=== PATIENT | female | born 1945 | race Caucasian/White ===

== ENCOUNTER 2017-10-15 16:07 | Emergency (ER) | payer MEDICARE, MEDICAID ==
[~2017-10-15] VITALS: Wt 181.4 kg
[~2017-10-15 16:07] MED LIST: ALBUTEROL 3 ML 33 ML INH; ANTIVERT/2525 MG PO; ASPIRIN ADULT L81 M2 PO; ASPIRIN EC325 MG PO; ASPIRIN325 M2 PO; AUGMENTIN 500 M1 TAB PO; B12,B-12,B 12500 MC1 PO; C Q 10; CENTRUM SILVER1 EACH PO; CENTRUM SILVER1 TA1 PO; CENTRUM SILVER1 TA2 PO; CENTRUM1 TAB PO; CO Q 10; COENZYME Q PO; COUMADIN; COUMADIN2 M1 PO; COUMADIN5 M2 PO; COUMADIN5 MG PO; COUMADIN6 M2 PO; COUMADIN7.5 M1 PO; CQ10 PO; DAYPRO600 M1 PO; DIOVAN80 M1 PO; DIOVAN80 MG PO; DIPHENHYDRAMINE25 M2 PO; DULCOLAX10 M1 RC; DULCOLAX10 MG R; DULCOLAX5 MG PO; FISH OIL; GLUCOPHAGE500 MG PO; GLYBURIDE AND M1 TA1 PO; GLYBURIDE AND M1 TA2 PO; GLYBURIDE MICRO1 TA1 PO; HUMALOG100 U/ML SC; INDERAL LA160 M1 PO; INDERAL LA80 MG PO; KEFLEX500 MG PO; LANTUS100 U/ML SC; LASIX40 MG PO; LIPITOR40 MG PO; METICORTEN1 MG PO; MYCOLOG CREAM 115 GM T; OXYGEN NAS; POTASSIUM CHLO20 ME3 PO; POTASSIUM20 MEQ PO; PREDNISONE1 MG PO; PREDNISONE5 MG PO; PROTONIX IV40 MG IV; PROVENTIL0.09 MG/A1 INH; PROZAC20 MG PO; RESTORIL30 MG PO; ROCEPHIN1 GM IV; SOLU-MEDROL125 MG PO; SPIRIVA -- 3018 MCG INH; SPIRIVA -- 3018 MCG PO; SYMBICORT1 AE1 INH; SYMBICORT1 AER INH; SYNTHROID,LEV150 MCG PO; SYNTHROID,LEV175 MCG PO; SYNTHROID0.125 MG PO; Synthroid,Lev200 MCG PO; TYLENOL325 M1 PO; TYLENOL325 M2 PO; VALSARTAN40 MG PO; VICODIN 5/500 505 MG PO; VICODIN 500 MG-1 TAB PO; VIT E; VITAMIN E400 UNI1 PO; VITAMIN E800 I1 PO; WARFARIN SODIU7.5 MG PO; ZITHROMAX250 MG PO; ZITHROMAX500 M1 IV; ZOFRAN2 MG/ML IV; [UNRECOGNIZED DRUG - OTHER] PO
[2017-10-15 16:15] VITALS: BP 156/54
[2017-10-15] MEDS ORDERED: MEDROL DOSEPAK4 MG PO ×2 (16:29→16:30)
[2017-10-15] MEDS ORDERED: HYDROXYZINE HCL25 MG PO ×2 (16:29→16:30)
== END 2017-10-15 16:27 | disposition home or self-care (01) ==
LOC: ED 16:07
DX: L50.8 Other urticaria (principal); T36.1X5A Adverse effect of cephalosporins and other beta-lactam antibiotics, initial encounter; Z90.89 Acquired absence of other organs; Z79.899 Other long term (current) drug therapy; Z79.01 Long term (current) use of anticoagulants; Z79.4 Long term (current) use of insulin; Z79.82 Long term (current) use of aspirin; Y92.9 Unspecified place or not applicable

== ENCOUNTER 2018-07-17 10:12 | Inpatient (IN) | payer MEDICARE, MEDICAID ==
[~2018-07-17] VITALS: Ht 175.2 cm; Wt 199.2 kg
--- NOTE | ~2018-07-17 | PR ---
[place], [place] PROGRESS NOTE NAME: LALO MCCULLOUGH [facility] #: [id number] UNIT #: [id number] ROOM: 530 DOCTOR: JOSHUA ULLOA BIRTHDATE: [birth year] DOS: 07/19/2018 PULMONARY PROGRESS NOTE SUBJECTIVE: The patient was noted sitting comfortably on her bed at this time without any signs of acute distress. The patient states she is feeling a lot better today and notes decreased shortness of breath and wheezing. The patient denies symptoms of fevers, chills, hemoptysis or chest pain at this time. OBJECTIVE: VITAL SIGNS: Normal temperature, respiratory rate 20, heart rate 71, blood pressure 146/64, pulse oxygen saturation on 2 liters nasal cannula 94%. HEENT: Head atraumatic. Eyes nonicterus. NECK: Supple. CARDIOVASCULAR: S1, S2 audible. LUNGS: Wheezing noted throughout lungs with decreased breathing sounds bilaterally. No crackles appreciated at this time. EXTREMITIES: Edema noted with superimposed chronic severe obesity. LABORATORY DATA: CBC on 07/19/2018, white blood cell count 12.4, hemoglobin 13, platelet count 306. CMP on 07/19/2018, BUN 39, creatinine 1.33, carbon dioxide 26, glucose 293. INR at this time is now therapeutic at 2.3. Chest x-ray repeated done on 07/18/2018, impression, normal PA and lateral chest. IMPRESSION: 1. Resolving acute hypoxic respiratory failure with acute exacerbation of bronchial asthma. 2. Possible congestive heart failure with diastolic dysfunction cannot be excluded. 3. Elevation of creatinine resulting from diuretic use. 4. Morbid obesity. 5. Obstructive sleep apnea disorder. PLAN OF MANAGEMENT: We will continue to diurese the patient with furosemide 40 mg b.i.d. We will also continue to monitor the patient's BUN and creatinine, which has increased with the patient's use of diuretic. INR is therapeutic at this time. We will continue the patient's antibiotic, bronchodilators and other supportive care. Continue oxygen supplementation to maintain a pulse oxygen saturation of 92% or greater. Further changes in management will be made based upon the change in the status of the patient during her stay and the progression of her illness. JOSHUA ULLOA DO [place], [place] PROGRESS NOTE NAME: LALO MCCULLOUGH UNIT #: [id number] ROOM: 530 DOCTOR: JOSHUA ULLOA BIRTHDATE: [birth year] CARLITO ALMONTE MD CM:PNMARGARET [id number] JOSHUA ULLOA 07/19/18 1757 interface
--- NOTE | ~2018-07-17 | EKG ---
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
--- NOTE | ~2018-07-17 | PR ---
[place], [place] PROGRESS NOTE NAME: LALO MCCULLOUGH [facility] #: [id number] UNIT #: [id number] ROOM: 530 DOCTOR: SUZY RIGGINS MD,CARLITO BIRTHDATE: [birth year] DOS: 07/20/2018 SUBJECTIVE: The patient was noted comfortable at this time, resting in the bed, noted continued improvement in respiratory symptoms, reduction of cough, wheezing, and shortness of breath. She used the CPAP last night. OBJECTIVE: VITAL SIGNS: Normal temperature, respiratory rate 18, heart rate 62, blood pressure 163/75. The pulse oxygen saturation recorded on 2 liters nasal cannula is 93% saturation. HEENT: Head was atraumatic. Eyes nonicterus. NECK: Supple. CARDIOVASCULAR: S1, S2 is audible. LUNGS: The patient was noted without any ____ or crackles. This morning improvement in wheezing noted. ABDOMEN: Soft, obese, nontender. EXTREMITIES: No edema. LABORATORY DATA: INR was noted 3.1 today. IMPRESSION: 1. The patient with progressive and gradual resolution of acute exacerbation of bronchial asthma, which was noted uncomplicated, severe persistent and acute bronchitis. 2. Obstructive sleep apnea disorder. PLAN OF MANAGEMENT: Discharge the patient from the pulmonary standpoint, on oral antibiotics and bronchodilators could be considered. Continue the therapy, plan of management as well as usual plan of care, and supportive care. CARLITO ALMONTE MD CM:PNTRANS [id number] CARLITO RIGGINS MD 07/21/18 0103 interface
--- NOTE | ~2018-07-17 | PR ---
[place], [place] PROGRESS NOTE NAME: LALO MCCULLOUGH UNIT #: [id number] ROOM: 530 DOCTOR: CARLITO NICOLAS MD BIRTHDATE: [birth year] DOS: 07/19/2018 PULMONARY PROGRESS NOTE SUBJECTIVE: The patient reported reduction in symptoms of shortness of breath, coughing, wheezing last 24 hours. Continue Solu-Medrol, bronchodilators and other treatments. She has been using her CPAP from home as well. OBJECTIVE: VITAL SIGNS: Normal temperature, respiratory rate 20, heart rate 71, blood pressure 146/64. The pulse oxygen saturation of the patient recorded as 94% on 2 liters nasal cannula. HEENT: Chronic severe morbid. Head was atraumatic. Eyes nonicterus. NECK: Supple. CARDIOVASCULAR: S1, S2 audible. LUNGS: Noted with [id number] expiratory wheezing, decreased from previous examination. ABDOMEN: Soft and obese, nontender. Bowel sounds present. EXTREMITIES: Without any acute edema. LABORATORY DATA: INR today noted at 2.33. The blood culture of the patient from the 07/17/2018 showed no bacterial growth. CBC this morning: WBC count 12.4. CMP: BUN of 39, creatinine 1.33, glucose 393. Chest x-ray of the patient that I ordered yesterday was completed does not show any acute pulmonary infiltration. IMPRESSION: 1. The patient with acute exacerbation of bronchial asthma with acute bronchitis, no evidence of pneumonia, resolution of small atelectasis noted in the chest x-ray, possibly on admission. 2. Morbid obesity. 3. Obstructive sleep apnea disorder. 4. Type 2 diabetes mellitus, uncontrolled hyperglycemia with use of steroids. PLAN OF TREATMENT: No change in pulmonary standpoint. Continue current dose of corticosteroids for the next 24 hours. Potential discharge home tomorrow morning from the patient pulmonary standpoint depends on further improvement of the respiratory status. [place], [place] PROGRESS NOTE NAME: LALO MCCULLOUGH UNIT #: [id number] ROOM: 530 DOCTOR: CARLITO NICOLAS MD BIRTHDATE: [birth year] CARLITO ALMONTE MD CM:PNTRANS [id number] CARLITO RIGGINS MD 07/20/18 0017 interface
--- NOTE | ~2018-07-17 | CON ---
[place], [place] REPORT OF CONSULTATION NAME: LALO MCCULLOUGH [facility] #: [id number] UNIT #: [id number] ROOM: 530 DOCTOR: CARLITO NICOLAS MD BIRTHDATE: [birth year] DOS: 07/18/2018 CONSULTATION REQUESTED BY: Hospitalist service. REASON FOR CONSULTATION: For the assessment of symptoms of current shortness of breath and exacerbation of COPD. HISTORY OF PRESENT ILLNESS: A 73-year-old white female patient known with history of uncomplicated severe persistent bronchial asthma as well as obstructive sleep apnea disorder, presented to the hospital as the patient reported symptoms of having increased shortness of breath for the past, several days the symptoms have been noted significantly worsened in the last 3-4 days. Shortness of breath was occurring now at rest. She was also reported having excessive wheezing, tightness in the chest, cough has been noted initially with nonproductive sputum. Currently, expectorating dark green to brown sputum. The quantity of the sputum expectoration noted small amount. She has been admitted to the hospital and manage the patient for exacerbation of bronchial asthma. The patient denies symptoms of chest pain with that. Denies symptoms of hemoptysis. The patient stated symptoms have been noted partially decreased since hospitalization. REVIEW OF SYSTEMS: CONSTITUTIONAL: Fatigue and tiredness reported. Denies symptoms of fever or chills. EYES: Denies any burning, redness, or tenderness. EARS, NOSE, THROAT SYMPTOMS: Denies sore throat, hoarseness, otalgia, postnasal drainage or epistaxis. CARDIOVASCULAR SYSTEM: No angina pain, edema, pain in the lower extremities. GASTROINTESTINAL SYMPTOMS: Dysphagia, nausea, vomiting, diarrhea, abdominal pain, hematemesis, melena, or hematochezia. Denies abnormal weight loss noted with advanced morbid obesity. GENITOURINARY SYMPTOMS: No dysuria, suprapubic pain, hematuria or flank pain. MUSCULOSKELETAL SYMPTOMS: No acute joint pain, redness or tenderness, any lesions. SKIN: Denies abnormal lesions or rashes. CENTRAL NERVOUS SYSTEM: No dizziness, headache, diplopia, syncopal episode, tingling sensations extremities. Remaining systems were reviewed. They were noted all negative. PAST MEDICAL HISTORY: 1. Noted as severe morbid obese. 2. Uncomplicated severe persistent bronchial asthma. 3. Obstructive sleep apnea disorder. 4. The patient with deep venous thrombosis. The patient with anticoagulation. 5. Hyperlipidemia. 6. Hypothyroidism. 7. Multiple sclerosis. 8. Anxiety disorder. [place], [place] REPORT OF CONSULTATION [facility] [id number] UNIT #: [id number] ROOM: [facility] DOCTOR: CARLITO NICOLAS MD BIRTHDATE: [birth year] PAST SURGICAL HISTORY: 1. IVC placement. 2. Tonsillectomy. 3. Fiberoptic bronchoscopy that was done in 2014. FAMILY HISTORY: The patient's mother lived to be 96 years old, of an old age. Father at 77 years complication of myocardial infarction. CURRENT MEDICATIONS: Administered on this hospitalization were noted as use of Coumadin, losartan, vitamin B12, aspirin, Lantus insulin, fluoxetine, levothyroxine, Lipitor, metoprolol tartrate, IV Solu-Medrol 40 mg b.i.d., Lasix, Imdur, DuoNeb, Zithromax. She was also getting p.r.n. medication for different symptoms. DRUG ALLERGIES: CEFTIN. PHYSICAL EXAMINATION: GENERAL: A 73-year-old female patient who has been currently resting comfortably in the bed without any acute distress. Height of 5 feet 9 inches. The weight recorded 441 pounds. BMI of 65. VITAL SIGNS: For the patient which has been recorded showed the temperature noted normal since admission, respiratory rate range between 18-24, heart rate 82-74, blood pressure 209/86, on admission, currently noted 150/63. The pulse oxygen sat recorded as 91-93% saturation on 3 liters nasal cannula 89% recorded on admission. HEAD, EYES, EARS, NOSE, AND THROAT: Severe chronic morbid obese. Head was atraumatic. Eyes nonicterus. NECK: Supple. CARDIOVASCULAR SYSTEM: S1, S2 audible. LUNGS: Noted moderate reduction in breath sounds bilaterally. Scattered expiratory wheezing. No crackles. ABDOMEN: Soft, nontender. Bowel sounds present, severe morbid obesity. EXTREMITIES: Chronic severe obesity with mild superimposed edema. VISIBLE SKIN: No lesions or rashes. MUSCULOSKELETAL: Without acute deformities. Cranial nerves 12 was noted normal. There was no focal neurologic deficit. LABORATORY AND DIAGNOSTIC DATA: The CBC that was done on 07/17/2018, normal CBC. The lactic acid 2.0 yesterday. The PT, PTT was noted, INR 1.8, which is subtherapeutic yesterday. CMP that was done yesterday, BUN 16, creatinine 1.11, glucose 154. Influenza A and B, nasal washing antigens were negative. The CBC that was done this morning still noted normal CBC. The PT/INR this morning as 1.6 is noted subtherapeutic. CMP this morning, BUN 23, creatinine 1.26, glucose 264. Remaining electrolytes were normal. The chest x-ray, which was done in the Emergency Room reviewed from the PACS images difficult to assess because of large body habitus. Questionable increased pulmonary congestion venous pulmonary congestion marking. There was no visible pulmonary infiltration. IMPRESSION: 1. The patient will be currently admitted to the hospital noted acute hypoxic [place], [place] REPORT OF CONSULTATION NAME: LALO MCCULLOUGH UNIT #: [id number] ROOM: [facility] DOCTOR: SUZY RIGGINS [facility] BIRTHDATE: [birth year] respiratory failure with acute exacerbation of bronchial asthma. 2. Possibly congestive heart failure with diastolic dysfunction cannot be excluded. 3. Elevation of creatinine resulting from the diuretic. The patient had been given Lasix 40 mg b.i.d. yesterday. She has been continued on the same dose today as well. 4. Morbid obesity. 5. Obstructive sleep apnea disorder. 6. Type 2 diabetes mellitus. 7. Hypothyroidism. 8. Multiple other medical illnesses. PLAN OF MANAGEMENT: The patient will be ordered PA lateral chest x-ray to be done today to assess the congestive heart failure or other abnormality as well. Continue in the meantime other previous treatment plan of medication as in progress. Additional treatment changes will be recommended based on the progression of her illness. Monitor kidney function closely with the use of high dose diuretics and electrolytes as well. Other supportive therapy, plan of management, care plan continue as ongoing. Usual care, other supportive plan of therapy, subtherapeutic INR noted, history of chronic thromboembolism. Adjust the Coumadin to bring to therapeutic level. Aware of the drug interaction could occur with the antibiotics and other medications. ____ subtherapeutic INR was noted with history of chronic thromboembolism. At this time, the patient would not require the BiPAP ____ management component, use of CPAP from home will be continued for the long-term management of sleep apnea disorder. Continue oxygen supplementation, maintain a pulse oxygen saturation 92% or greater. Thanks for allowing me to participate in the care of this patient. CARLITO ALMONTE MD CM:CONSTR:REPORT OF CONSULTATION 1059 07/18/18 1517 interface
--- NOTE | ~2018-07-17 | PR ---
[place], [place] PROGRESS NOTE NAME: LALO MCCULLOUGH [facility] #: [id number] UNIT #: [id number] ROOM: 530 DOCTOR: JOSHUA ULLOA BIRTHDATE: [birth year] DOS: 07/19/2018 PULMONARY PROGRESS NOTE SUBJECTIVE: The patient was noted sitting comfortably at her bed at this time without any signs of acute distress. The patient states she is feeling a lot better at this time with decreased wheezing and decreased shortness of breath. The patient denies fevers and chills as well as symptoms of chest pain and hemoptysis. OBJECTIVE: VITAL SIGNS: Normal temperature, respiratory rate 20, heart rate 71, blood pressure 146/64, pulse oxygen saturation on 2 liters nasal cannula 94%. HEENT: Head was atraumatic. Eyes nonicterus. NECK: Supple. CARDIOVASCULAR: S1, S2 audible. LUNGS: Wheezing noted throughout. Decreased sounds bilaterally. No crackles appreciated at this time. ABDOMEN: Soft, nontender. EXTREMITIES: Chronic severe obesity with mild superimposed edema. LABORATORY DATA: CBC on 07/19/2018, white blood cell count 12.4, hemoglobin 13, platelet count 306. CMP on 07/19/2018, BUN 39, creatinine 1.33, carbon dioxide 26, glucose 293. Imaging studies: Repeat chest x-ray on 07/18/2018 normal PA and lateral chest. IMPRESSION: 1. Ongoing acute hypoxic respiratory failure with acute exacerbation of bronchial asthma. 2. Possibly congestive heart failure with diastolic dysfunction, cannot not be excluded at this time. 3. Elevation of creatinine resulting from the diuretic. 4. Morbid obesity. 5. Obstructive sleep apnea disorder. PLAN OF TREATMENT: We will continue to diurese the patient with furosemide 40 mg b.i.d. Monitor kidney function closely with high dose diuretics and electrolytes as well. Other supportive therapy, plan of management, care plan continue as ongoing. INR noted to be therapeutic at this time. Continue oxygen supplementation, maintain a pulse ox of 92% or greater. We will continue the patient's current antibiotics treatment and bronchodilators. Further changes in treatment will be made according to the progression of the patient's illness during her stay. JOSHUA ULLOA DO [place], [place] PROGRESS NOTE NAME: LALO MCCULLOUGH UNIT #: [id number] ROOM: [facility] DOCTOR: JOSHUA ULLOA BIRTHDATE: [birth year] CARLITO ALMONTE MD CM:RU [id number] 1452 JOSHUA ULLOA 07/19/18 1718 interface
--- NOTE | ~2018-07-17 | PR ---
[place], [place] PROGRESS NOTE [id number] UN[facility] #: [id number] ROOM: 530 DOCTOR: JOSHUA ULLOA BIRTHDATE: [birth year] DOS: 07/20/2018 PULMONARY PROGRESS NOTE SUBJECTIVE: The patient was noted sitting comfortably at her bed at this time without any signs of acute distress. The patient states she is feeling better today with decreased symptoms of shortness of breath. The patient has no complaints of fevers, chills or chest pain at this time. OBJECTIVE: VITAL SIGNS: Normal temperature, respiratory rate 20, heart rate 62, blood pressure 163/75, pulse oxygen saturation on 2 liters nasal cannula 93% saturation. HEENT: Head was atraumatic. Eyes, nonicterus. NECK: Supple. CARDIOVASCULAR: S1, S2 audible. LUNGS: Clear. ABDOMEN: Soft, nontender. EXTREMITIES: Without any acute edema. IMPRESSION: 1. The patient with acute exacerbation of bronchial asthma with acute bronchitis. 2. Morbid obesity. 3. Obstructive sleep apnea disorder. 4. Type 2 diabetes mellitus. PLAN OF TREATMENT: The patient is stable from a pulmonary standpoint. The patient may be discharged on antibiotics of primary care doctor's choosing as well as steroid taper. JOSHUA ULLOA DO [place], [place] PROGRESS NOTE NAME: [facility] [id number] UNIT #: [id number] ROOM: 530 DOCTOR: JOSHUA ULLOA BIRTHDATE: [birth year] CARLITO ALMONTE MD CM:RU [id number] 0027 JOSHUA ULLOA 07/21/18 0651 interface
--- NOTE | ~2018-07-17 | ECHO ---
[place], [place] ADULT ECHOCARDIOGRAPHY REPORT NAME LALO MCCULLOUGH UNIT #: [id number] ROOM: 530 DOCTOR: BUTCH AYALA MD, FACC BIRTHDATE: [birth year] DOS: 07/18/2018 CARDIOLOGY CONSULTATION HISTORY OF PRESENT ILLNESS: The patient is a 73-year-old female, moderately obese individual, came in with progressive increasing shortness of breath and peripheral edema with history of chronic obstructive airway disease with exacerbation. The patient also has bronchospasm. She also has sleep apnea. The patient is on steroids and bronchodilators. The patient also on diuresis quite well because of underlying congestive heart failure with IV Lasix. Since creatinine is only borderline elevated, we started Aldactone also and adjusted the current medications to improve the underlying congestive heart failure. The patient had an echocardiogram, I reviewed with the patient and explained to the patient. The patient also has progressive fatigue and tiredness, peripheral edema, and shortness of breath. She denies any chills or fever. PAST MEDICAL HISTORY: The patient has history of multiple sclerosis, hyperlipidemia, hypertension, congestive heart failure, and anxiety. PAST SURGICAL HISTORY: The patient had an IVC filter placement in the past, tonsillectomy, and bronchoscope in 2015. PHYSICAL EXAMINATION: GENERAL: The patient is markedly obese. VITAL SIGNS: Stable. LUNGS: Diminished breath sounds on auscultation of the lungs and bibasilar rales and rhonchi. EXTREMITIES: 3+ peripheral edema in lower extremities. NEUROLOGIC: No focal neurological deficit noted. RECTAL AND GENITAL: Deferred. Dr. Mahan is seeing and following the underlying pulmonary problem. Blood pressure is 143/63, heart rate is 60, afebrile. Pulse ox is normal. LABORATORY DATA: Creatinine is 1.26. Enzymes are unremarkable. DIAGNOSES: 1. Congestive heart failure. 2. Acute exacerbation of chronic obstructive airway disease. 3. Obesity. 4. Peripheral edema. PLAN: I will review echocardiogram. Continue with the current medication as adjusted. Thank you very much for asking me to see the patient. I will follow the patient. [place], [place] ADULT ECHOCARDIOGRAPHY REPORT NAME LALO MCCULLOUGH UNIT #: [id number] ROOM: 530 DOCTOR: BUTCH AYALA MD, FACC BIRTHDATE: [birth year] BUTCH AYALA MD CM:ECHO:ADULT ECHOCARDIOGRAPHY REPORT [id number] LYUBOV POPE MD [facility]
[2018-07-17 10:12] VITALS: BP 209/86
[~2018-07-17 10:12] MED LIST changes: +HYDROXYZINE HCL25 MG PO; +LANTUS SOL100 UNIT/1 SC; -LANTUS100 U/ML SC; +MEDROL DOSEPAK4 MG PO; +PROVENTIL HFA6.7 GM INH; -PROVENTIL0.09 MG/A1 INH
[2018-07-17 10:47] LABS: BASO % 0.4 % (0.0-1.0); EOS # 0.4 10*3/uL (0.0-0.4); EOS % 4.8 % (1.0-4.0); HEMATOCRIT 42.7 % (37.0-47.0); LYMPH # 1.8 10*3/uL (1.3-4.4); LYMPH % 23.4 % (27.0-41.0); MEAN CELL VOLUME 97.3 fl (81.0-99.0); MEAN CORPUSCULAR HGB 31.9 pg (27.0-31.0); MEAN CORPUSCULAR HGB CONC 32.8 g/dl (33.0-37.0); MEAN PLATELET VOLUME 9.1 fl (9.6-12.3); MONO # 0.7 10*3/uL (0.1-1.0); MONO % 8.5 % (3.0-9.0); NEUT # 4.9 10*3/uL (2.3-7.9); NEUT % 62.6 % (47.0-73.0); PLATELET COUNT AUTOMATED 259 10*3/uL (130-400); RED BLOOD COUNT 4.39 10*6/uL (4.10-5.10); RED CELL DISTRI WIDTH 12.9 % (0-14.5); WHITE BLOOD COUNT 7.9 10*3/uL (4.8-10.8)
[2018-07-17 10:58] VITALS: BP 170/90
[2018-07-17 10:59] LABS: INTERNATIONAL NORM RATIO 1.8 (2.0-3.5)
[2018-07-17 11:04] LABS: ALKALINE PHOSPHATASE 90 U/L (45-117); BUN 16 mg/dl (7-24); CHLORIDE 105 mmol/L (98-107); CREATININE 1.11 mg/dL (0.55-1.02); LIPASE 198 U/L (73-393); POTASSIUM 4.4 mmol/L (3.5-5.1); SGOT/AST 17 IU/L (3-35); SGPT/ALT 25 U/L (12-78); SODIUM 139 mmol/L (136-145)
[2018-07-17 11:07] LABS: TROPONIN I < 0.015 ng/ml (<0.045)
[2018-07-17 12:30] VITALS: BP 160/98
[2018-07-17] MEDS ORDERED: COZAAR50 M1 PO (13:10)
[2018-07-17] MEDS ORDERED: VENTOLIN 02.5 MG/3 M INH (13:12)
[2018-07-17 13:13] VITALS: BP 160/72
[2018-07-17] MEDS ORDERED: SYMB160 INH (13:13)
[2018-07-17] MEDS ORDERED: COUMADIN5 M2 PO (13:14)
[2018-07-17] MEDS ORDERED: COUMADIN10 M1 PO (13:15)
[2018-07-17] MEDS ORDERED: PREDNISONE5 MG PO (13:16)
[2018-07-17] MEDS ORDERED: VITAMIN D31000 UNI1 PO (13:17)
[2018-07-17] MEDS ORDERED: CO-Q10 PO (13:18)
[2018-07-17] MEDS ORDERED: GARLIC1 EAC1 PO (13:19)
[2018-07-17] MEDS ORDERED: TRULICITY1.5 MG/0.5 SC (13:26)
[2018-07-17] MEDS ORDERED: LEVOTHYROXINE175 MCG PO (13:28)
[2018-07-17 16:00] VITALS: BP 170/70; BP 186/69
[2018-07-17 16:27] LABS: BILIRUBIN NEGATIVE (NEGATIVE); BLOOD NEGATIVE (NEGATIVE); CLARITY CLEAR (CLEAR); COLOR YELLOW (YELLOW); GLUCOSE TRACE (NEGATIVE); KETONE NEGATIVE (NEGATIVE); LEUKO ESTERASE NEGATIVE (NEGATIVE); NITRITE NEGATIVE (NEGATIVE); PH 5.5 (5.0-9.0); UROBILINOGEN 0.2 E.U./dl (0.2-1.0)
[2018-07-17 16:33] LABS: BACTERIA 1+; RBC 0-2 rbc/hpf (0-2)
[2018-07-17] MEDS ORDERED: ADVIL PM CAPLE1 EACH PO (17:37)
[2018-07-17 20:00] VITALS: BP 150/63
[2018-07-18] VITALS: BP 157/81
[2018-07-18 06:07] LABS: BASO % 0.1 % (0.0-1.0); HEMATOCRIT 40.5 % (37.0-47.0); HEMOGLOBIN 13.3 g/dl (12.0-16.0); LYMPH # 1.3 10*3/uL (1.3-4.4); LYMPH % 17.1 % (27.0-41.0); MEAN CELL VOLUME 95.7 fl (81.0-99.0); MEAN CORPUSCULAR HGB 31.4 pg (27.0-31.0); MEAN CORPUSCULAR HGB CONC 32.8 g/dl (33.0-37.0); MEAN PLATELET VOLUME 9.2 fl (9.6-12.3); MONO # 0.1 10*3/uL (0.1-1.0); MONO % 1.4 % (3.0-9.0); NEUT % 80.9 % (47.0-73.0); PLATELET COUNT AUTOMATED 280 10*3/uL (130-400); RED BLOOD COUNT 4.23 10*6/uL (4.10-5.10); WHITE BLOOD COUNT 7.4 10*3/uL (4.8-10.8)
[2018-07-18 06:42] LABS: ALBUMIN 2.9 gm/dl (3.1-4.5); CREATININE 1.26 mg/dL (0.55-1.02); POTASSIUM 4.3 mmol/L (3.5-5.1)
[2018-07-18 06:45] LABS: INTERNATIONAL NORM RATIO 1.6 (2.0-3.5)
[2018-07-18 06:51] LABS: FREE T4 1.38 ng/dl (0.76-1.46); PHOSPHOROUS 3.2 mg/dL (2.5-4.9); THYROID STIM HORMONE (HS) 0.044 uIU/ml (0.358-4.75); TOTAL PROTEIN 7.1 gm/dL (6.4-8.2)
[2018-07-18 07:23] LABS: VITAMIN D, 25-HYDROXY 28.9 ng/mL (30-100)
[2018-07-18 10:42] VITALS: BP 122/90
[2018-07-18 12:00] VITALS: BP 143/63
[2018-07-18 16:00] VITALS: BP 142/55
[2018-07-18 20:00] VITALS: BP 155/43
[2018-07-18 20:30] VITALS: BP 156/66
[2018-07-19] VITALS: BP 157/71
[2018-07-19 06:22] LABS: BASO % 0.1 % (0.0-1.0); HEMATOCRIT 39.8 % (37.0-47.0); LYMPH # 1.2 10*3/uL (1.3-4.4); LYMPH % 9.7 % (27.0-41.0); MEAN CELL VOLUME 95.7 fl (81.0-99.0); MEAN CORPUSCULAR HGB 31.3 pg (27.0-31.0); MEAN CORPUSCULAR HGB CONC 32.7 g/dl (33.0-37.0); MEAN PLATELET VOLUME 9.6 fl (9.6-12.3); MONO # 0.3 10*3/uL (0.1-1.0); NEUT # 10.9 10*3/uL (2.3-7.9); NEUT % 87.6 % (47.0-73.0); PLATELET COUNT AUTOMATED 306 10*3/uL (130-400); RED BLOOD COUNT 4.16 10*6/uL (4.10-5.10); WHITE BLOOD COUNT 12.4 10*3/uL (4.8-10.8)
[2018-07-19 06:29] LABS: INTERNATIONAL NORM RATIO 2.3 (2.0-3.5)
[2018-07-19 06:39] LABS: CREATININE 1.33 mg/dL (0.55-1.02); POTASSIUM 4.3 mmol/L (3.5-5.1); TOTAL PROTEIN 6.8 gm/dL (6.4-8.2)
[2018-07-19 08:01] VITALS: BP 146/64
[2018-07-19 12:00] VITALS: BP 156/63
[2018-07-19 16:00] VITALS: BP 184/69
[2018-07-19 20:00] VITALS: BP 155/58
[2018-07-20] VITALS: BP 148/60
[2018-07-20 06:52] LABS: INTERNATIONAL NORM RATIO 3.1 (2.0-3.5)
[2018-07-20 06:54] LABS: ALBUMIN 2.8 gm/dl (3.1-4.5); CREATININE 1.31 mg/dL (0.55-1.02); POTASSIUM 4.4 mmol/L (3.5-5.1); TOTAL PROTEIN 6.7 gm/dL (6.4-8.2)
[2018-07-20 08:27] VITALS: BP 163/75
[2018-07-20] MEDS ORDERED: AVPAK AZITHROM250 M1 PO (11:58)
[2018-07-20] MEDS ORDERED: PREDNISONE10 MG PO (11:58)
[2018-07-20] MEDS ORDERED: COUMADIN6 M2 PO (11:59)
[2018-07-20] MEDS ORDERED: LASIX40 MG PO (12:03)
[2018-07-20] MEDS ORDERED: LOPRESSOR25 MG PO (12:03)
[2018-07-20] MEDS ORDERED: ALDACTONE25 MG PO (12:03)
[2018-07-20] MEDS ORDERED: IMDUR SA30 MG PO (12:03)
[2018-07-20 12:14] VITALS: BP 162/72
== END 2018-07-20 14:00 | disposition home health service (06) | DRG 189 ==
LOC: ED 10:12 → 5E 11:51 → EDHOLD 11:51 → 5E 11:52
PROVIDERS: Physician Assistant; Registered Nurse
DX: J96.01 Acute respiratory failure with hypoxia (principal); I13.0 Hypertensive heart and chronic kidney disease with heart failure and stage 1 through stage 4 chronic kidney disease, or unspecified chronic kidney disease; J45.51 Severe persistent asthma with (acute) exacerbation; E44.0 Moderate protein-calorie malnutrition; Z68.44 Body mass index [BMI] 60.0-69.9, adult; J44.1 Chronic obstructive pulmonary disease with (acute) exacerbation; J44.0 Chronic obstructive pulmonary disease with (acute) lower respiratory infection; J98.11 Atelectasis; T38.0X5A Adverse effect of glucocorticoids and synthetic analogues, initial encounter; J20.9 Acute bronchitis, unspecified; I50.9 Heart failure, unspecified; N18.3 Chronic kidney disease, stage 3 (moderate); G35 Multiple sclerosis; G47.33 Obstructive sleep apnea (adult) (pediatric); E11.65 Type 2 diabetes mellitus with hyperglycemia; F41.9 Anxiety disorder, unspecified; F32.9 Major depressive disorder, single episode, unspecified; D64.9 Anemia, unspecified; E78.2 Mixed hyperlipidemia; R79.1 Abnormal coagulation profile; E03.9 Hypothyroidism, unspecified; E66.01 Morbid (severe) obesity due to excess calories; T50.2X5A Adverse effect of carbonic-anhydrase inhibitors, benzothiadiazides and other diuretics, initial encounter; Z79.4 Long term (current) use of insulin; Z88.1 Allergy status to other antibiotic agents; Z82.49 Family history of ischemic heart disease and other diseases of the circulatory system; Z83.3 Family history of diabetes mellitus; Z80.9 Family history of malignant neoplasm, unspecified; Z80.7 Family history of other malignant neoplasms of lymphoid, hematopoietic and related tissues; Z86.718 Personal history of other venous thrombosis and embolism; Z86.711 Personal history of pulmonary embolism; Z86.14 Personal history of Methicillin resistant Staphylococcus aureus infection; Z79.82 Long term (current) use of aspirin; Z79.899 Other long term (current) drug therapy; Z79.52 Long term (current) use of systemic steroids; Y92.89 Other specified places as the place of occurrence of the external cause

== ENCOUNTER 2019-03-26 10:33 | Emergency (ER) | payer MEDICARE, MEDICAID ==
[~2019-03-26] VITALS: Ht 170.1 cm; Wt 204.1 kg
[~2019-03-26 10:33] MED LIST changes: +ADVIL PM CAPLE1 EACH PO; +ALDACTONE25 MG PO; +AVPAK AZITHROM250 M1 PO; +CO-Q10 PO; +COUMADIN10 M1 PO; +COZAAR50 M1 PO; +GARLIC1 EAC1 PO; +IMDUR SA30 MG PO; +LEVOTHYROXINE175 MCG PO; +LOPRESSOR25 MG PO; +PREDNISONE10 MG PO; +SYMB160 INH; +TRULICITY1.5 MG/0.5 SC; +VENTOLIN 02.5 MG/3 M INH; +VITAMIN D31000 UNI1 PO
[2019-03-26 10:34] VITALS: BP 145/41
[2019-03-26 11:31] LABS: BASO % 0.5 % (0.0-1.0); EOS # 0.3 10*3/uL (0.0-0.4); EOS % 4.1 % (1.0-4.0); HEMATOCRIT 42.1 % (37.0-47.0); HEMOGLOBIN 13.6 g/dl (12.0-16.0); LYMPH # 1.2 10*3/uL (1.3-4.4); LYMPH % 18.9 % (27.0-41.0); MEAN CELL VOLUME 102.7 fl (81.0-99.0); MEAN CORPUSCULAR HGB 33.2 pg (27.0-31.0); MEAN CORPUSCULAR HGB CONC 32.3 g/dl (33.0-37.0); MEAN PLATELET VOLUME 10.2 fl (9.6-12.3); MONO # 0.6 10*3/uL (0.1-1.0); MONO % 9.2 % (3.0-9.0); NEUT # 4.3 10*3/uL (2.3-7.9); NEUT % 67.1 % (47.0-73.0); PLATELET COUNT AUTOMATED 216 10*3/uL (130-400); RED CELL DISTRI WIDTH 13.6 % (0-14.5); WHITE BLOOD COUNT 6.4 10*3/uL (4.8-10.8)
[2019-03-26 11:44] LABS: ACT PARTIAL THROMBO TIME 29.1 SECONDS (20.0-32.1); INTERNATIONAL NORM RATIO 1.6 (2.0-3.5)
[2019-03-26 11:49] LABS: ALBUMIN 3.2 gm/dl (3.1-4.5); ALKALINE PHOSPHATASE 75 U/L (45-117); BUN 22 mg/dl (7-24); CHLORIDE 104 mmol/L (98-107); CREATININE 1.58 mg/dL (0.55-1.02); POTASSIUM 4.5 mmol/L (3.5-5.1); SGOT/AST 17 IU/L (3-35); SGPT/ALT 27 U/L (12-78); SODIUM 140 mmol/L (136-145); TOTAL PROTEIN 6.7 gm/dL (6.4-8.2); TROPONIN I < 0.015 ng/ml (<0.045)
[2019-03-26] MEDS ORDERED: AUGMENTIN 875875 MG PO (12:29)
[2019-03-26] MEDS ORDERED: COUMADIN1 M1 PO (12:35)
== END 2019-03-26 12:32 | disposition home or self-care (01) ==
LOC: ED 10:33
PROVIDERS: Emergency Medicine
DX: L03.116 Cellulitis of left lower limb (principal); R79.1 Abnormal coagulation profile; I87.2 Venous insufficiency (chronic) (peripheral); J44.9 Chronic obstructive pulmonary disease, unspecified; I13.0 Hypertensive heart and chronic kidney disease with heart failure and stage 1 through stage 4 chronic kidney disease, or unspecified chronic kidney disease; E11.22 Type 2 diabetes mellitus with diabetic chronic kidney disease; N18.3 Chronic kidney disease, stage 3 (moderate); I50.9 Heart failure, unspecified; E78.5 Hyperlipidemia, unspecified; E03.9 Hypothyroidism, unspecified; E66.9 Obesity, unspecified; Z88.1 Allergy status to other antibiotic agents; Z79.899 Other long term (current) drug therapy; Z79.4 Long term (current) use of insulin; Z79.01 Long term (current) use of anticoagulants; Z79.2 Long term (current) use of antibiotics

== ENCOUNTER → 2019-10-05 | Outpatient (CLI) | payer MEDICARE, MEDICAID ==
[~2019-10-05] MED LIST changes: +AUGMENTIN 875875 MG PO; +COUMADIN1 M1 PO
[2019-10-05 10:30] LABS: POTASSIUM 3.7 mmol/L (3.5-5.1)
[2019-10-05 10:47] LABS: ALBUMIN 2.8 gm/dl (3.1-4.5); CREATININE 1.42 mg/dL (0.55-1.02); FREE T4 1.02 ng/dl (0.76-1.46); THYROID STIM HORMONE (HS) 0.752 uIU/ml (0.358-4.75); TOTAL PROTEIN 6.6 gm/dL (6.4-8.2)
[2019-10-05 10:55] LABS: VITAMIN D, 25-HYDROXY 50.2 ng/mL (30-100)
[2019-10-06 11:10] LABS: CREATININE,URINE 155.1 mg/dL (Not Estab.)
== END | disposition home or self-care (01) ==
LOC: LAB 08:41
PROVIDERS: Internal Medicine Endocrinology, Diabetes & Metabolism
DX: E03.9 Hypothyroidism, unspecified (principal); E11.22 Type 2 diabetes mellitus with diabetic chronic kidney disease; E53.8 Deficiency of other specified B group vitamins; E55.9 Vitamin D deficiency, unspecified

== ENCOUNTER 2021-04-24 12:58 | Inpatient (IN) | payer MEDICARE, MEDICAID ==
[~2021-04-24] VITALS: Ht 170.1 cm; Wt 196.5 kg
[~2021-04-24 12:58] MED LIST changes: +LEVO-T137 MCG PO; -LEVOTHYROXINE175 MCG PO; +LIPITOR80 MG PO; -TRULICITY1.5 MG/0.5 SC; +TRULICITY4.5 MG/0.5 SQ
[2021-04-24 13:04] VITALS: BP 132/59
[2021-04-24 13:45] LABS: BASO % 0.3 % (0.0-1.0); EOS # 0.1 10*3/uL (0.0-0.4); EOS % 1.6 % (1.0-4.0); HEMATOCRIT 30.1 % (37.0-47.0); LYMPH # 1.2 10*3/uL (1.3-4.4); LYMPH % 18.6 % (27.0-41.0); MEAN CELL VOLUME 105.2 fl (81.0-99.0); MEAN CORPUSCULAR HGB 32.9 pg (27.0-31.0); MEAN CORPUSCULAR HGB CONC 31.2 g/dl (33.0-37.0); MEAN PLATELET VOLUME 9.1 fl (9.6-12.3); MONO # 0.8 10*3/uL (0.1-1.0); MONO % 12.7 % (3.0-9.0); NEUT # 4.3 10*3/uL (2.3-7.9); NEUT % 66.3 % (47.0-73.0); PLATELET COUNT AUTOMATED 336 10*3/uL (130-400); RED BLOOD COUNT 2.86 10*6/uL (4.10-5.10); RED CELL DISTRI WIDTH 17.2 % (0-14.5); WHITE BLOOD COUNT 6.4 10*3/uL (4.8-10.8)
[2021-04-24 13:56] LABS: ACT PARTIAL THROMBO TIME 51.8 SECONDS (20.0-32.1); INTERNATIONAL NORM RATIO 3.8 (2.0-3.5)
[2021-04-24 14:01] LABS: ALBUMIN 1.9 gm/dl (3.1-4.5); CREATININE 1.4 mg/dL (0.55-1.02); POTASSIUM 3.8 mmol/L (3.5-5.1); TOTAL PROTEIN 5.5 gm/dL (6.4-8.2)
[2021-04-24 18:15] VITALS: BP 105/40
[2021-04-24] MEDS ORDERED: COREG12.5 M1 PO (19:01)
[2021-04-24] MEDS ORDERED: BRILINTA90 M1 PO (19:03)
[2021-04-24] MEDS ORDERED: ISOSORBIDE MON120 MG PO (19:04)
[2021-04-24] MEDS ORDERED: VITAMIN D250 MCG PO (19:06)
[2021-04-24] MEDS ORDERED: SINGULAIR10 M1 PO (19:07)
[2021-04-24] MEDS ORDERED: FEROSUL325 MG PO (19:09)
[2021-04-24] MEDS ORDERED: Coumadin3 MG PO (19:14)
[2021-04-24 23:30] VITALS: BP 90/52
[2021-04-25] VITALS (8 sets, daily range): BP systolic 92–124; BP diastolic 36–52
[2021-04-25 06:46] LABS: BASO % 0.2 % (0.0-1.0); HEMATOCRIT 29.1 % (37.0-47.0); LYMPH # 0.7 10*3/uL (1.3-4.4); LYMPH % 10.2 % (27.0-41.0); MEAN CELL VOLUME 103.2 fl (81.0-99.0); MEAN CORPUSCULAR HGB 31.9 pg (27.0-31.0); MEAN CORPUSCULAR HGB CONC 30.9 g/dl (33.0-37.0); MEAN PLATELET VOLUME 9.3 fl (9.6-12.3); MONO # 0.2 10*3/uL (0.1-1.0); MONO % 3.7 % (3.0-9.0); NEUT # 5.6 10*3/uL (2.3-7.9); NEUT % 85.4 % (47.0-73.0); PLATELET COUNT AUTOMATED 346 10*3/uL (130-400); RED BLOOD COUNT 2.82 10*6/uL (4.10-5.10); RED CELL DISTRI WIDTH 16.7 % (0-14.5); WHITE BLOOD COUNT 6.6 10*3/uL (4.8-10.8)
[2021-04-25 06:58] LABS: INTERNATIONAL NORM RATIO 2.9 (2.0-3.5)
[2021-04-25 07:01] LABS: ALBUMIN 1.8 gm/dl (3.1-4.5); CREATININE 1.23 mg/dL (0.55-1.02); POTASSIUM 3.9 mmol/L (3.5-5.1); TOTAL PROTEIN 5.5 gm/dL (6.4-8.2)
[2021-04-25 07:37] LABS: VITAMIN D, 25-HYDROXY 45.2 ng/mL (30-100)
[2021-04-26] VITALS: BP 106/50
[2021-04-26 06:29] LABS: BASO % 0.1 % (0.0-1.0); HEMATOCRIT 31.1 % (37.0-47.0); LYMPH # 0.7 10*3/uL (1.3-4.4); LYMPH % 7.7 % (27.0-41.0); MEAN CELL VOLUME 106.1 fl (81.0-99.0); MEAN CORPUSCULAR HGB 32.1 pg (27.0-31.0); MEAN CORPUSCULAR HGB CONC 30.2 g/dl (33.0-37.0); MEAN PLATELET VOLUME 9.8 fl (9.6-12.3); MONO # 0.3 10*3/uL (0.1-1.0); MONO % 3.1 % (3.0-9.0); NEUT # 8.1 10*3/uL (2.3-7.9); NEUT % 88.3 % (47.0-73.0); PLATELET COUNT AUTOMATED 383 10*3/uL (130-400); RED BLOOD COUNT 2.93 10*6/uL (4.10-5.10); RED CELL DISTRI WIDTH 16.6 % (0-14.5); WHITE BLOOD COUNT 9.2 10*3/uL (4.8-10.8)
[2021-04-26 06:39] LABS: INTERNATIONAL NORM RATIO 2.9 (2.0-3.5)
[2021-04-26 06:41] LABS: CREATININE 1.34 mg/dL (0.55-1.02); POTASSIUM 3.5 mmol/L (3.5-5.1)
[2021-04-26 08:00] VITALS: BP 124/47
[2021-04-26 12:00] VITALS: BP 116/52
[2021-04-26 16:00] VITALS: BP 130/55
[2021-04-26 20:00] VITALS: BP 123/44
[2021-04-27] VITALS: BP 133/51
[2021-04-27 06:23] LABS: INTERNATIONAL NORM RATIO 2.3 (2.0-3.5)
[2021-04-27 06:34] LABS: BASO % 0.1 % (0.0-1.0); HEMATOCRIT 29.1 % (37.0-47.0); LYMPH # 0.7 10*3/uL (1.3-4.4); LYMPH % 7.7 % (27.0-41.0); MEAN CELL VOLUME 104.3 fl (81.0-99.0); MEAN CORPUSCULAR HGB 31.9 pg (27.0-31.0); MEAN CORPUSCULAR HGB CONC 30.6 g/dl (33.0-37.0); MEAN PLATELET VOLUME 9.7 fl (9.6-12.3); MONO # 0.4 10*3/uL (0.1-1.0); MONO % 4.9 % (3.0-9.0); NEUT # 7.5 10*3/uL (2.3-7.9); NEUT % 86.7 % (47.0-73.0); PLATELET COUNT AUTOMATED 397 10*3/uL (130-400); RED BLOOD COUNT 2.79 10*6/uL (4.10-5.10); RED CELL DISTRI WIDTH 16.3 % (0-14.5); WHITE BLOOD COUNT 8.6 10*3/uL (4.8-10.8)
[2021-04-27 06:40] LABS: ALBUMIN 1.9 gm/dl (3.1-4.5); CREATININE 1.46 mg/dL (0.55-1.02); POTASSIUM 3.9 mmol/L (3.5-5.1); TOTAL PROTEIN 5.8 gm/dL (6.4-8.2); URIC ACID 11.6 mg/dL (2.6-6.0)
[2021-04-27 08:00] VITALS: BP 129/65
[2021-04-27 12:00] VITALS: BP 137/63
[2021-04-27] MEDS ORDERED: IMDUR SA30 MG PO (12:27)
[2021-04-27] MEDS ORDERED: Coumadin2 MG PO (12:27)
[2021-04-27] MEDS ORDERED: PREDNISONE10 MG PO (12:27)
[2021-04-27] MEDS ORDERED: DOXYCYCLINE HY100 M3 PO (12:29)
[2021-04-27] MEDS ORDERED: ALLOPURINOL100 MG PO (12:29)
== END 2021-04-27 13:18 | disposition home health service (06) | DRG 602 ==
LOC: ED 12:58 → EDHOLD 14:50 → 4E 14:50
PROVIDERS: Family Medicine; Hospitalist; Student in an Organized Health Care Education/Training Program; ADMIT Internal Medicine; ATTEND Internal Medicine
PROC: 5A09357 Assistance with Respiratory Ventilation, Less than 24 Consecutive Hours, Continuous Positive Airway Pressure (ICD-10-PCS; principal; 2021-04-25)
PROC: 5A09357 Assistance with Respiratory Ventilation, Less than 24 Consecutive Hours, Continuous Positive Airway Pressure (ICD-10-PCS; 2021-04-26)
PROC: 5A09357 Assistance with Respiratory Ventilation, Less than 24 Consecutive Hours, Continuous Positive Airway Pressure (ICD-10-PCS; 2021-04-27)
DX: L03.116 Cellulitis of left lower limb (principal); E43 Unspecified severe protein-calorie malnutrition; Z68.44 Body mass index [BMI] 60.0-69.9, adult; M10.9 Gout, unspecified; I50.9 Heart failure, unspecified; D53.9 Nutritional anemia, unspecified; E11.65 Type 2 diabetes mellitus with hyperglycemia; F32.9 Major depressive disorder, single episode, unspecified; J44.9 Chronic obstructive pulmonary disease, unspecified; F41.1 Generalized anxiety disorder; I11.0 Hypertensive heart disease with heart failure; N18.32 Chronic kidney disease, stage 3b; G47.33 Obstructive sleep apnea (adult) (pediatric); G35 Multiple sclerosis; Z79.4 Long term (current) use of insulin; Z83.3 Family history of diabetes mellitus; Z82.49 Family history of ischemic heart disease and other diseases of the circulatory system; Z88.8 Allergy status to other drugs, medicaments and biological substances; Z79.899 Other long term (current) drug therapy; Z79.51 Long term (current) use of inhaled steroids; Z79.01 Long term (current) use of anticoagulants; Z86.718 Personal history of other venous thrombosis and embolism; Z86.711 Personal history of pulmonary embolism